=== PATIENT | male | born 1960 | race Caucasian/White ===

== ENCOUNTER 2021-10-06 05:54 | Day surgery (SDC) | payer OTHER ==
[~2021-10-06] VITALS: Ht 180.3 cm; Wt 83.0 kg
[~2021-10-06 05:54] MED LIST: NAPR220 PO
[2021-10-06] MEDS ORDERED: Prinivil10 MG PO (06:53)
--- NOTE | 2021-10-06 07:09 | NUR ---
Ambulatory in [facility] warming gown applied. Surgical site prepped with 2% Chlorhexidine cloth wipe. History, Chart, Medications and Allergies reviewed before start of procedure.Lungs clear T/O to Auscultation. Ethics consult requested and facilitated. I reviewed the chart, relevant statutory regulations and ethical principles and provided advisory support and guidance to the staff, patient and or family unit. Surgical site prepped with 2% Chlorhexidine cloth wipe.
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
--- NOTE | 2021-10-06 10:56 | NUR ---
DISCHARGE SUMMARY PT A&OX4, VSS/RA, NEVILLE P0, DENIES NEED FOR PAIN MEDICATION, STAND AT BEDSIDE-DENIES DIZZY/LIGHTHEADEDNESS, DC INSTRUCTIONS REVIEWED WITH PT AND Deuce FOREMAN, THEY REPORT UNDERSTANDING THOSE INSTRUCTIONS. LEFT UNIT, DECLINED WC, WITH DC INSTRUCTIONS AND 1 NARC SCRIPT. IV X2 DC'D.
== END 2021-10-06 23:25 | disposition home or self-care (01) ==
LOC: ORSCMMR 05:54 → ORD 07:30 → ORSCMMR 07:30
PROVIDERS: Surgery
PROC: 8E0W4CZ Robotic Assisted Procedure of Trunk Region, Percutaneous Endoscopic Approach (ICD-10-PCS; principal; 2021-10-06 07:30)
PROC: 0YU64JZ Supplement Left Inguinal Region with Synthetic Substitute, Percutaneous Endoscopic Approach (ICD-10-PCS; principal; 2021-10-06 07:30)
PROC: 0WQF0ZZ Repair Abdominal Wall, Open Approach (ICD-10-PCS; principal; 2021-10-06 07:30)
DX: K40.90 Unilateral inguinal hernia, without obstruction or gangrene, not specified as recurrent (principal); K42.9 Umbilical hernia without obstruction or gangrene; I10 Essential (primary) hypertension; Z87.891 Personal history of nicotine dependence; J43.9 Emphysema, unspecified; E78.5 Hyperlipidemia, unspecified; Z79.899 Other long term (current) drug therapy
CPT/HCPCS: 49650; 49585; S2900; C1781; J0690; J1100; J2250; J2405; J2704; J2795; J3010; J7120